=== PATIENT | female | born 1935 | race Caucasian/White ===

== ENCOUNTER 2016-10-14 06:15 | Day surgery (SDC) | payer MEDICARE ==
[~2016-10-14] VITALS: Ht 152.4 cm; Wt 77.6 kg
[~2016-10-14 06:15] MED LIST: AMLODIPINE BESYL5 MG PO; ASPIRIN EC325 MG PO; ATORVASTATIN CA80 MG PO; FISH OIL 1,0001 EAC3 PO; FUROSEMIDE20 MG PO; HYDROCHLOROTHIA25 MG PO; KEFLEX500 MG PO; LEVOTHYROXINE75 MCG PO; LOSARTAN POTAS100 MG PO; OSTERA TABLET1 EACH PO; POTASSIUM CHLO10 MEQ PO; RESTASIS1 DROP OD; STOOL SOFTENER100 MG PO; VITAMIN D50000 UNI1 PO
[2016-10-14] MEDS ORDERED: ACID CONTROLLER10 MG PO (06:33)
[2016-10-14] MEDS ORDERED: FEOSOL325 MG PO (06:33)
--- NOTE | 2016-10-14 08:11 | NUR ---
10/14/16 0811 Eunice Baptiste 0805 - PT ARRIVED TO PACU. BP NOTED TO BE LOW, FLUIDS RUNNING, HEAD OF BED LOWERED. PT RESPONDING APPROPRIATLY TO QUESTIONS. PT ORIENTED TO PERSON, PLACE, TIME, AND SITUATION. PT MAINTAINING OWN AIRWAY AND DENIES PAIN AND NAUSEA
--- NOTE | 2016-10-19 10:32 | OR ---
[facility] [address], [place] [address] Signed DATE OF SERVICE: 10/14/2016 PREOPERATIVE DIAGNOSES: Dark stool with anemia. Unremarkable colonoscopy 1 year ago. POSTOPERATIVE DIAGNOSES: Diffuse gastritis without active hemorrhage, small hiatal hernia without esophagitis. PROCEDURE PERFORMED: Esophagogastroduodenoscopy with biopsy. SURGEON: Fernanda Richard MD. ANESTHESIA: Intravenous sedation, fentanyl 100 mcg, Versed 3 mg. INDICATION: This 81-year-old white woman, is a patient of Dr. Au and underwent colonoscopy in 2016, which was essentially normal. Certainly, no evidence of neoplasm or significant polyp disease. She has developed dark stool and low-grade anemia. She has had no harriet hematemesis. She denies any upper abdominal pain. She describes being "allergic" to Prilosec. She is admitted at this time to undergo upper endoscopy to better characterize the source of her complaint. Understand the risks of bleeding, infection, and perforation. FINDINGS: Esophagus was normal as was the duodenum. The stomach had diffuse gastritis. A punctate type significant inflammatory change of the upper stomach. Biopsies were obtained. CLOtest was negative 15 minutes post procedure. CLOtest will be monitored for at least 24 hours. DESCRIPTION OF PROCEDURE: The patient brought to the endoscopy suite and placed in later al decubitus position after undergoing topical Hurricaine spray hypopharyngeal anesthesia. A bite block was placed after satisfactory intravenous sedation with full cardiopulmonary monitoring. An Olympus video upper endoscope was placed in the hypopharynx. Vocal cords were visualized as normal. Scope was advanced to the esophagus without problem. Throughout its length, it was normal. Scope was advanced to the stomach, which was insufflated with air. There was a fair amount of bile within the stomach. Rug a l folds appeared normal in configuration. Scope was advanced to the antrum, which showed some mild erythematous streaking of the pre-pyloric antrum. The pylorus itself was not deformed and there is no Electronically Signed By: FERNANDA RICHARD MD 10/19/16 1032 PATIENT NAME: KELSIE SULLIVAN OPERATIVE REPORT DATE OF : 39 PHYSICIAN: FERNANDA RICHARD MD REPORT #: [id number] REPORT IS CONFIDENTIAL AND NOT TO BE RELEASED WITHOUT AUTHORIZATION [facility] [address], [place] [address] Signed pre-pyloric ulcer proper. The scope was passed into the duodenal, in the bulbar second and third portions all appeared reasonably normal. Biopsies were taken of the second and third portions. This was to assess for celiac disease. The scope was then withdrawn. Biopsies taken of the antrum for both clinical and pathologic testing, and a retroflex view was undertaken showing punctate diffuse gastritis throughout the stomach. An atrophic appearing mucosa was noted. Biopsies were taken more proximally as well. There was a hiatal hernia noted at the GE junction. The scope was straightened and withdrawn to the distal esophagus, where biopsies were obtained. The mucosa appeared normal. Careful withdrawal of scope showed no other abnormalities. Scope was removed, and the patient was taken to recovery room in good condition. CONCLUDING DIAGNOSIS: Diffuse gastritis likely accounting for symptoms. PLAN We will prescribe Carafate 1 g slurry q.i.d. on empty stomach. Avoidance of ibuprofen as much as possible in the near-term future would be appropriate. We will recheck CBC in approximately 4 weeks and she can return to clinic in 4-6 weeks in followup. MD DAILY Evans/Kevin /[id number] Electronically Signed By: FERNANDA RICHARD MD 10/19/16 1032 PATIENT NAME: KELSIE SULLIVAN OPERATIVE REPORT DATE OF : 39 PHYSICIAN: FERNANDA RICHARD MD REPORT #: [id number] REPORT IS CONFIDENTIAL AND NOT TO BE RELEASED WITHOUT AUTHORIZATION
== END 2016-10-14 09:00 | disposition home or self-care (01) ==
LOC: OPS 06:15 → DS 06:15 → OPS 09:00 → DS 14:00
PROVIDERS: Surgery
PROC: 0DB78ZX Excision of Stomach, Pylorus, Via Natural or Artificial Opening Endoscopic, Diagnostic (ICD-10-PCS; 2016-10-14)
PROC: 0DB68ZX Excision of Stomach, Via Natural or Artificial Opening Endoscopic, Diagnostic (ICD-10-PCS; 2016-10-14)
PROC: 0DB38ZX Excision of Lower Esophagus, Via Natural or Artificial Opening Endoscopic, Diagnostic (ICD-10-PCS; principal; 2016-10-14 14:00)
DX: K29.50 Unspecified chronic gastritis without bleeding (principal); K44.9 Diaphragmatic hernia without obstruction or gangrene; K21.9 Gastro-esophageal reflux disease without esophagitis; I10 Essential (primary) hypertension; E78.5 Hyperlipidemia, unspecified; E03.9 Hypothyroidism, unspecified; E66.9 Obesity, unspecified; M81.0 Age-related osteoporosis without current pathological fracture; D64.9 Anemia, unspecified; Z87.440 Personal history of urinary (tract) infections; Z98.890 Other specified postprocedural states
CPT/HCPCS: 88305; 88342; 99152; 99153; J2250; J3010; J7120

== ENCOUNTER 2021-10-07 23:23 | Inpatient (IN) | payer MEDICARE ==
[~2021-10-07] VITALS: Ht 152.4 cm; Wt 82.2 kg
[~2021-10-07 23:23] MED LIST changes: +ACID CONTROLLER10 MG PO; +FEOSOL325 MG PO
[2021-10-07] MEDS ORDERED: CIPRO500 MG PO (23:37)
--- NOTE | 2021-10-08 02:28 | NUR ---
PATIENT CONVERTED FROM AFIB TO NSR. RATE IN THE 70'S. VS STABLE.
--- NOTE | 2021-10-08 03:11 | NUR ---
REPORT RECEIVED FROM KULWANT WARE. PATIENT ARRIVED VIA STRETCHER WITH FAMILY AT BEDSIDE. PATIENT HAD TO USE THE RESTROOM AND USED THE BEDSIDE COMMODE. SHE REOPRTS URGE INCONTINANCE AND BURNING DUE TO RECENT UTI. ORIENTED TO CALL LIGHT AND ROOM. FAMILY AT BEDSIDE. CALL LIGHT IN REACH.
[2021-10-08] MEDS ORDERED: TROSPIUM CHLORI60 MG PO (04:33)
--- NOTE | 2021-10-08 05:32 | NUR ---
IN ROOM TO GIVE AM MEDS. PATIENT REPORTED NEEDING TO USE THE RESTROOM. 1 PERSON ASSIST TO BEDSIDE COMMODE. URGE INCONTINANCE WITH VOID. CLEAN ATTENDS PLACE ON PT. HR BUMPED TO THE 90'S WITH AMBULATION.
--- NOTE | 2021-10-08 07:48 | NUR ---
1PA TO BSC FOR VOID, PATIENT WAS ALSO INCONTINENT OF URINE DURING TRANSFER TO BSC. VITALS AND I&OS CHARTED, FACE AND HANDS WASHED. PATIENT UP IN DR SHAGGY GARCES AT CHAIRSIDE. CALL LIGHT IN EASY REACH
--- NOTE | 2021-10-08 07:53 | NUR ---
DR. COON IN ROOM TO SEE PATIENT AT THIS TIME. PT UP SITTING IN CHAIR, VISITING WITH MD. PLAN OF CARE BEING DISCUSSED. PT REMAINS IN A SINUS RHYTHM SINCE AROUND 0230 THIS AM. LAST BP 125/69. IVF CONTINUE AT 125 ML/HR. PT APPEARS COMFORTABLE.
--- NOTE | 2021-10-08 09:00 | NUR ---
Spoke with pt and she states she lives with her spouse in a 1 story house with few steps. She does not use DME, assists her as he is 87. States she is active, cleans, cooks, does laundry, and yard work. States she became very weak with AFIB and could not work. She also has two daughters who assist them when needed. Pt plans on dc to home when cleared medically. Pt convert to sr from afib.
[2021-10-08] MEDS ORDERED: CIPROFLOXACIN250 MG PO (09:19)
[2021-10-08] MEDS ORDERED: CEPHALEXIN500 MG PO (09:20)
[2021-10-08] MEDS ORDERED: ATORVASTATIN CA20 MG PO (09:20)
[2021-10-08] MEDS ORDERED: MYRBETRIQ50 MG PO (09:20)
[2021-10-08] MEDS ORDERED: LOSARTAN-HCTZ1 EAC2 PO (09:21)
[2021-10-08] MEDS ORDERED: FAMOTIDINE40 MG PO (09:21)
--- NOTE | 2021-10-08 09:59 | NUR ---
PATIENT BACK TO BED FOR ECHO. PATIENT CALLS APPROPRIATELY WHEN SHE NEEDS TO VOID HOWEVER THE MINUTE SHE STANDS, SHE HAS LITTLE CONTROL OVER HER BLADDER AND VOIDS IN HER ATTENDS.
--- NOTE | 2021-10-08 10:15 | NUR ---
ECHO IN ROOM AT THIS TIME AND PERFORMING ECHO. PT HELPED BACK TO BED WITH ASSISTANCE OF SERVER ASSISTANT. PT UP TO BSC TO VOID AFTER INCONTINENCE IN ATTENDS. PT REMAINS IN SINUS RHYTHM.
--- NOTE | 2021-10-08 11:08 | NUR ---
1PA TO BSC FOR VOID AND BACK TO CHAIR. AND DAUGHTER IN ROOM. CALL LIGHT IN EASY REACH
--- NOTE | 2021-10-08 12:31 | NUR ---
PATIENT BACK IN BED AT THIS TIME AND RESTING. PT GIVEN SUPPOSITORY TO HELP HER HAVE A BM, WHICH SHE STATES SHE HASN'T HAD IN 3 DAYS. PT FRUSTRATED WITH THIS. PT'S FAMILY HAS LEFT FOR THE DAY BUT WERE HERE VISITING FOR SEVERAL HOURS THIS AM. PT REMAINS IN SINUS RHYTHM. HR IN THE60s. PT DENIES ANY PAIN AT THIS TIME. ASSESSMENT COMPLETE AND UNCHANGED FROM THIS AM. PT REMAINS SALINE LOCKED. CONTINUE CARLOS ONITOR.
--- NOTE | 2021-10-08 12:37 | NUR ---
VITALS AND I&OS CHARTED PATIENT UP TO BSC FOR VOID AND BACK TO BED. RN IN ROOM AT THIS TIME. CALL LIGHT IN EASY REACH.
--- NOTE | 2021-10-08 13:41 | NUR ---
PATIENT TRANSFERRED TOMED/SURG, ROOM 109 IN BED. REPORT GIVEN TO CHAZ ABDULLAHI WHO IS RESUMING CARE OF PATIENT. PT'S KEKE MORALES [phone] CALLED TO UPDATE ON PT'S MOVE. ALL BELONGINGS TRANSFERRED WITH PATIENT.
--- NOTE | 2021-10-08 13:45 | NUR ---
Pt arrives to medical floor room 109. Pt A+O, VSS. Assessment WNL. Tele in place, SR. IV SL WNL. Pt oriented to room/unit, states no needs. Call light in reach.
--- NOTE | 2021-10-08 14:10 | NUR ---
DIGITAL COMMUNICATIONS MANAGER Tia in room to assist pt to use restroom.
--- NOTE | 2021-10-08 14:55 | NUR ---
Pt assisted to use restroom, some incontinence of urine noted, clean dry attends provided. Scheduled lovenox administered and pt educated, verbalizes understanding about POC and has no questions.
--- NOTE | 2021-10-08 16:30 | NUR ---
Pt continues to have gas and no BM, urine incontinence noted, assisted with ambulation and dry attends provided.
--- NOTE | 2021-10-08 18:16 | NUR ---
Scheduled medications administered and pt finishing her dinner of a sandwich, she states low appetite. Fresh water provided, family in room, questions answered re: POC. They verbalize understanding. No needs at this time.
--- NOTE | 2021-10-08 19:26 | NUR ---
BEDSIDE REPORT FROMJUNIOR RN , PT RESTING IN BED EYES CLOSED RR REGULAR AT 16 BPM. NO DISTRESS NOTED AT THIS TIME.
--- NOTE | 2021-10-08 21:30 | NUR ---
PT SITTING UP AT BEDSIDE, SHE HAD REPORTED THAT SHE HAS BEEN TO THE BATHROOM AND BACK BY HERSELF, SHE ALSO SAID SHE THOUGHT IT WAS 0900 AM RATHER THAN NIGHT TIME. PT REORIENTED, SHE HAD SMALL BM, AND MISSED VOID X2. SHE IS NOW IN BED WITH BED ALARM ON ASSESSMENT COMPLETE.
--- NOTE | 2021-10-08 23:14 | NUR ---
PT USED CALL LIGHT FOR ASSISTANCE TO GET OUT OF BED TO BATHROOM AT THIS TIME.
--- NOTE | 2021-10-08 23:24 | NUR ---
patient CALLED TO USE THE BATHROOM. SBA. PATIENT REFUSED TO USE WALKER. PATIENT'S PULL UP AND ABEL PAD CHANGED DUE TO INCONTINENT URINE. PATIENT IS BACK IN BED. PATIENT DENIES FURTHER NEEDS AT THIS TIME. BED SIDE RAILS UP AND BED ALARM ON FOR SAFETY. CALL LIGHT WITHIN REACH.
--- NOTE | 2021-10-09 01:00 | NUR ---
CALL LIGHT ANSWERED. PT UP TO BR TO VOID 100 ML CLEAR YELLOW URINE. PT INCONTINENT ON THE WAY TO THE BATHROOM WELL. CLEAN ATTENDS PROVIDED. BACK TO BED, RICO WELL. DENIES NEEDS. CALL LIGHT IN REACH. BED ALARM FOR SAFETY.
--- NOTE | 2021-10-09 03:53 | NUR ---
BED ALARM SOUNDING. PATIENT GOT UP TO USE THE BATHROOM. SBA. PATIENT IS URINATING WHILE ON THE WAY TO THE BATHROOM. PATIENT'S PULL UPS WITH ABEL PAD CHANGED. PATIENT IS BACK IN BED. BED ALARM ON. PATIENT'S IV ON HER RIGHT ARM PULLED OUT. PRIMARY RN NOTIFIED.
--- NOTE | 2021-10-09 04:36 | NUR ---
PT HAS BEEN SLEEPING INTERMITTENLY, SHE CALLS OR SETS OFF BED ALARM TO GET UP TO USE THE BATHROOM ON AVERAGE EVERY TWO HOURS. SHE HAS NOT REPORTED ANY PAIN OR NAUSEA OVER SHIFT. SHE IS ONE PERSON STANDBY ASSIST UP TO AMBULATE. WILL COLLECT NEW URINE SAMPLE PER ORDERS BY END OF SHIFT. NO NEW CONCERNS THIS SHIFT.
--- NOTE | 2021-10-09 05:05 | NUR ---
PT USED CALL LIGHT FOR ASSISTANCE UP TO BATHROOM. ONE PERSON STANDBY ASSIST, PT STEADY ON HER FEET THIS AM, V/S, I/O AND AM ASSESSMENT COMPLETE. BED ALARM ON FOR PT SAFETY, CALL LIGHT IN REACH
--- NOTE | 2021-10-09 06:07 | NUR ---
PATIENT WENT TO THE BATHROOM SBA. PATIENT IS UP IN THE CHAIR. ALARM SET. URINE SAMPLE COLLECTED AND SENT TO LAB.
--- NOTE | 2021-10-09 07:26 | EKG ---
[facility] [address] [facility] [place], [place] [address] Signed Atrial fibrillation with rapid ventricular response ST \T\ T wave abnormality, consider inferior ischemia Abnormal ECG No previous ECGs available Confirmed by ZEENAT COON MD ([id number]) on 10/09/2021 7:26:39 AM Electronically Signed By: ZEENAT COON MD 10/09/21 0726 PATIENT NAME: KELSIE SULLIVAN Electrocardiogram DATE OF : 39 PHYSICIAN: ZEENAT COON MD REPORT #: [id number] REPORT IS CONFIDENTIAL AND NOT TO BE RELEASED WITHOUT AUTHORIZATION
--- NOTE | 2021-10-09 07:38 | NUR ---
Report received from Judy WARE. Pt resting in bed with eyes closed, even and unlabored resporations, no needs identified, will continue plan of care.
--- NOTE | 2021-10-09 09:10 | NUR ---
Spoke with Yvonne. She cont. to plan on dc today. Denies any needs. Daughter and spouse will pick her up and transport her home.
--- NOTE | 2021-10-09 09:40 | NUR ---
Scheduled medications administered and assessment complete. Pt sitting up to chair after breakfast and states her appetite has been improving. Family arrives at bedside. Pt states had small BM during night and her "stomach is feeling better". VSS, HRR, BP and rhythm WNL. Family questions regarding home medications, Rebecca from pharmacy in room to assist.
[2021-10-09] MEDS ORDERED: POTASSIUM CHLO10 MEQ PO (10:16)
[2021-10-09] MEDS ORDERED: DILTIAZEM 24HR120 MG PO (10:16)
== END 2021-10-09 11:05 | disposition home or self-care (01) | DRG 641 ==
LOC: ED 23:23 → CCU 10-08 01:14 → MS 10-08 13:40
PROVIDERS: ADMIT Internal Medicine; ATTEND Internal Medicine
DX: E87.6 Hypokalemia (principal); N39.0 Urinary tract infection, site not specified; I48.91 Unspecified atrial fibrillation; E87.1 Hypo-osmolality and hyponatremia; K59.00 Constipation, unspecified; I35.0 Nonrheumatic aortic (valve) stenosis; E03.9 Hypothyroidism, unspecified; K21.9 Gastro-esophageal reflux disease without esophagitis; I10 Essential (primary) hypertension; E78.00 Pure hypercholesterolemia, unspecified; M81.0 Age-related osteoporosis without current pathological fracture; Z90.710 Acquired absence of both cervix and uterus; Z98.890 Other specified postprocedural states; Z91.013 Allergy to seafood; Z88.8 Allergy status to other drugs, medicaments and biological substances; Z79.899 Other long term (current) drug therapy; Z79.02 Long term (current) use of antithrombotics/antiplatelets; Z79.82 Long term (current) use of aspirin; Z79.2 Long term (current) use of antibiotics; Z79.01 Long term (current) use of anticoagulants; Z20.822 Contact with and (suspected) exposure to COVID-19
CPT/HCPCS: 36415; 71045; 74018; 80048; 80053; 81001; 83735; 83880; 84484; 85025; 87502; 93005; 93010; 93306; 96361; 96374; 96375; 99285-25; A9270; C9803; J1650; J3475; J3480; J7030; U0003

== ENCOUNTER 2022-06-13 10:03 | Emergency (ER) | payer MEDICARE ==
[~2022-06-13] VITALS: Ht 152.4 cm; Wt 77.1 kg
[~2022-06-13 10:03] MED LIST changes: +ALPHA LIPOIC A200 MG PO; +ATORVASTATIN CA20 MG PO; +CEPHALEXIN500 MG PO; +CIPRO500 MG PO; +CIPROFLOXACIN250 MG PO; +CITALOPRAM HBR10 MG PO; +DILT-XR120 MG PO; +DILTIAZEM 24HR120 MG PO; +FAMOTIDINE40 MG PO; +JANTOVEN5 MG PO; +LOSARTAN-HCTZ1 EAC2 PO; +MYRBETRIQ50 MG PO; +TROSPIUM CHLORI60 MG PO; +VITAMIN B-121000 MCG PO; +VITAMIN D325 MC4 PO; -VITAMIN D50000 UNI1 PO
[2022-06-13] MEDS ORDERED: KLOR-CON M1010 MEQ PO (10:17)
[2022-06-13] MEDS ORDERED: ONDANSETRON HCL4 MG PO (13:10)
== END 2022-06-13 13:33 | disposition home or self-care (01) ==
LOC: ED 10:03
DX: R19.7 Diarrhea, unspecified (principal); I10 Essential (primary) hypertension; E78.5 Hyperlipidemia, unspecified; E03.9 Hypothyroidism, unspecified; Z91.013 Allergy to seafood; Z88.8 Allergy status to other drugs, medicaments and biological substances; Z79.899 Other long term (current) drug therapy; Z79.01 Long term (current) use of anticoagulants
CPT/HCPCS: 36415; 80053; 81001; 83690; 85025; 85610; 87088; 96374; 99284-25; J2405; J7030

== ENCOUNTER 2024-06-13 08:34 | Inpatient (IN) | payer MEDICARE ==
[~2024-06-13] VITALS: Ht 157.5 cm; Wt 80.1 kg
[~2024-06-13 08:34] MED LIST changes: +DULOXETINE HCL30 MG PO; +KLOR-CON M1010 MEQ PO; +ONDANSETRON HCL4 MG PO; -VITAMIN B-121000 MCG PO
[2024-06-13 09:51] LABS: BASOPHILS 0.4 % (0-2); EOSINOPHILS 1.1 % (0-6); HEMATOCRIT 24.9 % (35.0-50.0); HEMOGLOBIN 8.4 g/dL (12.0-18.0); LYMPHOCYTES 20.8 % (24-44); MCH 30.8 (27-36); MCHC 33.9 g/dl (30-36); MONOCYTES 9.1 % (0-12); NEUTROPHILS 68.6 % (39-80); PLATELET COUNT 192 K/uL (140-440); RBC 2.74 M/ul (4.3-5.7); RDW 14.3 (10.5-15.0)
[2024-06-13 10:03] LABS: PARTIAL THROMBOPLASTIN TIME 22.9 Sec (22.9-41.3)
[2024-06-13 10:04] LABS: INR 1.73 (0.80-1.30); PROTIME 20.3 Sec (11.2-14.2)
[2024-06-13 10:07] LABS: ALBUMIN 3.2 g/dL (3.4-5.0); ALBUMIN/GLOBULIN RATIO 1.23 (1.1-2.4); BILIRUBIN, TOTAL 0.4 mg/dL (0.2-1.0); BUN/CREATININE RATIO 14.94 (6.0-28.6); CREATININE, SERUM 0.87 mg/dL (0.55-1.02); PROTEIN, TOTAL 5.8 g/dL (6.4-8.2)
[2024-06-13 10:24] LABS: ABO A; ANTIBODY SCREEN NEGATIVE; RH POSITIVE
[2024-06-13] MEDS ORDERED: SODIUM CHLORIDE 0.9% 500 ML IV PRN (11:15)
[2024-06-13 14:17] LABS: IS CROSSMATCH COMPATIBLE
[2024-06-13 14:18] LABS: ABO A; RH POSITIVE
[2024-06-13] MEDS ORDERED: FAMOTIDINE 20 MG TAB PO SCH (14:29)
[2024-06-13] MEDS ORDERED: ACETAMINOPHEN 325 MG TAB PO PRN (14:30)
[2024-06-13] MEDS ORDERED: LACTATED RINGER'S 1,000 ML IV SCH (14:30)
[2024-06-13] MEDS ORDERED: ondansetron HCL 4 MG/2 ML VIAL IV PRN (14:30)
[2024-06-13] MEDS ORDERED: POLYETHYLENE GLYCOL 3350 BOTTLE PO ONE (14:45)
[2024-06-13] MEDS ORDERED: LIDOCAINE HCL 4% 1 EACH PATCH TD SCH (14:45)
[2024-06-13] MEDS ORDERED: LIDOCAINE1 EACH TOP (14:52)
--- NOTE | 2024-06-13 15:45 | NUR ---
PT ARRIVED TO MS ROOM 111 VIA STRETCHER. MOVED TO BED VIA SLIDER SHEET. SKIN INTACT, BRUISES SCATTERED, MULTIPLE IV ATTEMPTS IN ER. HEART MUMUR HEARD. LUNGS CLEAR. REPORTS WEAKNESS BILAT LEGS. PT WAS CHANGED AND CLEANED. CLOTS OF BLOOD PRESENT, UNDERWEAR SATURATED IN BLOOD. PT GAVE OKAY TO THROW THEM IN GARBAGE. CLEAN BRIEF APPLIED. ORIENTED TO CALL LIGHT, IN REACH. BLOOD TRANSFUSION INFUSING AT 125 ML/HR. PT TOLERATING WELL. FAMILY AT BEDSIDE.
[2024-06-13 15:48] VITALS: BP 117/56
[2024-06-13 16:33] VITALS: BP 117/56
[2024-06-13] MEDS ORDERED: ATORVASTATIN 20 MG TAB PO SCH (17:00)
[2024-06-13] MEDS ORDERED: VITAMIN B-121000 MCG PO (17:07)
[2024-06-13] MEDS ORDERED: VITAMIN D325 MC4 PO (17:07)
--- NOTE | 2024-06-13 17:09 | NUR ---
medications reconciled with pharmacy records, Dr Witt notes and patient interview. Patient stopped warfarin on the direction of Dr Witt 06/11/24 when she presented with potential GI bleed
[2024-06-13] MEDS ORDERED: ACETAMINOPHEN500 MG PO (17:16)
[2024-06-13 17:51] VITALS: BP 117/49
--- NOTE | 2024-06-13 18:40 | NUR ---
blood transfusion complete. vss.
[2024-06-13 18:47] VITALS: BP 117/49
--- NOTE | 2024-06-13 19:25 | NUR ---
CALL LIGHT ANSWERED. 1 PA TO BEDSIDE COMMODE. PATIENT VOIDED MIXED WITH BM AND COLOR DARK RED. PRIMARY RN DAY SHIFT LOOKED AT IT. ABEL CARE ASSISTED. PATIENT IS BACK IN BED. NO OTHER NEEDS AT THIS TIME.
--- NOTE | 2024-06-13 19:40 | NUR ---
GOT REPORT FROM DAY SHIFT NURSE.
[2024-06-13 20:45] VITALS: BP 112/47
[2024-06-13] MEDS ORDERED: PHYTONADIONE 2.5 MG/2.5 ML SYR PO ONE (20:45)
[2024-06-13] MEDS ORDERED: dilTIAZem HCL 120 MG CAPCR PO SCH (21:00)
[2024-06-13] MEDS ORDERED: LIDOCAINE PATCH REMOVAL 1 EA TD SCH (21:00)
[2024-06-13] MEDS ORDERED: MELATONIN 3 MG TAB PO PRN (21:00)
[2024-06-13 21:10] VITALS: BP 112/47
--- NOTE | 2024-06-13 21:14 | NUR ---
PATIENT GIVEN EVENING MEDICATIONS. SHE IS DOING HER BOWEL PREP CURRENTLY. WILL BE NPO AT BEDTIME. PATIENT UP TO THE BEDSIDE COMMOND FOR BM. PATIENT CURRENTLY WATCHING TV AND IN GOOD SPIRITS. SHE WAS GIVEN A WARM BLANKET AND MELATONIN TO GET SOME REST. PATIENT DENIES AN OTHER CARES AT THIS TIME. CALL LIGHT WITHIN REACH, BED IN LOW POSITION. IV FLUIDS RUNNING.
--- NOTE | 2024-06-13 21:30 | EKG ---
[facility] [address] [facility] [place] [address] Signed Normal sinus rhythm with sinus arrhythmia Nonspecific T wave abnormality Abnormal ECG When compared with ECG of 07-OCT-2021 23:47, Sinus rhythm has replaced Atrial fibrillation Vent. rate has decreased BY 58 BPM Non-specific change in ST segment in Inferior leads ST no longer depressed in Anterior leads Nonspecific T wave abnormality has replaced inverted T waves in Inferior leads Nonspecific T wave abnormality has replaced inverted T waves in Lateral leads Confirmed by Madisyn Ralph DO ([id number]) on 06/13/2024 9:30:11 PM Electronically Signed By: MADISYN RALPH DO [id number]/13/[id number] PATIENT NAME: KELSIE SULLIVAN Electrocardiogram DATE OF : 39 PHYSICIAN: MADISYN RALPH DO REPORT #: [id number] REPORT IS CONFIDENTIAL AND NOT TO BE RELEASED WITHOUT AUTHORIZATION
--- NOTE | 2024-06-13 22:46 | NUR ---
PATIENT UP WITH UNDERWATER HUNTER TRAPPER AT BEDSIDE COMMODE. PATIENT WILL BE NPO AT MIDNIGHT.
--- NOTE | 2024-06-13 23:50 | NUR ---
PATIENT SLEEPING ON HER LEFT SIDE. REGULAR RESPIRATIONS NOTED.
[2024-06-14] VITALS (10 sets, daily range): BP systolic 107–136; BP diastolic 45–56
--- NOTE | 2024-06-14 00:30 | NUR ---
RECEIVED RPEORT FROM SALAZAR WARE. PATIENT IS RESTING IN BED WITH EYES CLOSED, RR 15. NAD NOTED. CALL LIGHT IN REACH.
--- NOTE | 2024-06-14 02:06 | NUR ---
PATIENTS VITALS TAKEN AND RECORDED. PATIENT UP TO BSC A SBA. PATIENT ABLE TO VOID AND HAVE BM. PATIENT IS BACK IN BED RESTING. PATIENTS INTAKE AND OUTPUT RECORDED. PATIENT DENIES ANY PAIN OR NAUSEA. PATIENT DENIES ANY FURTHER NEEDS. CALL LIGHT IN REACH. IV INFUSING PER ORDER.
--- NOTE | 2024-06-14 04:24 | NUR ---
PATIENT IS UP TO BSC A 1PA. PATIENT ABLE TO VOID AND HAVE BM. PATIENT IS BACK IN BED RESTING. PATIENT DENIES ANY PAIN OR NAUSEA. PATIENT DENIES ANY FURTHER NEEDS. SCDS IN PLACE. IV INFUSING PER ORDER. CALL LIGHT IN REACH. CONSENT SIGNED AND PLACED ON CHART.
[2024-06-14 05:20] LABS: BASOPHILS 0.8 % (0-2); EOSINOPHILS 1.6 % (0-6); HEMATOCRIT 21.1 % (35.0-50.0); HEMOGLOBIN 7.2 g/dL (12.0-18.0); LYMPHOCYTES 29.1 % (24-44); MCH 30.9 (27-36); MCHC 34.3 g/dl (30-36); MCV 90.2 fl (81-99); NEUTROPHILS 59.5 % (39-80); PLATELET COUNT 149 K/uL (140-440); RBC 2.34 M/ul (4.3-5.7); RDW 14.7 (10.5-15.0)
[2024-06-14 05:29] LABS: ANION GAP 11.9 (7-21); BUN/CREATININE RATIO 14.7 (6.0-28.6); CALCIUM 8.5 mg/dL (8.5-10.1); CREATININE, SERUM 0.68 mg/dL (0.55-1.02); MAGNESIUM 1.9 mg/dL (1.8-2.4); POTASSIUM 3.9 mmol/L (3.5-5.1)
--- NOTE | 2024-06-14 06:24 | NUR ---
PATIENTS VITALS TAKEN AND RECORDED. PATIENT UP TO BSC A 1PA. PATIENT ABLE TO VOID AND HAVE BM. PATIENT IS BADK IN BED RESTING. PATIENT DENIES ANY PAIN OR NAUSEA. PATIENTS IV INFUSING PER ORDER. PATIENTS AM MEDS GIVEN WITH SIPS OF WATER. PATIENT DENIES ANY FURTHER NEEDS. CALL LIGHT IN REACH.
[2024-06-14] MEDS ORDERED: LEVOTHYROXINE SODIUM 75 MCG TAB PO SCH (07:00)
--- NOTE | 2024-06-14 08:36 | NUR ---
PATIENT IN BED AT THIS TIME. CHARGING OPERATOR ASSISTED PATIENT TO BEDSIDE COMMODE AND THEN BACK TO BED, HOURLY ROUNDS DONE AT THIS TIME. CALL LIGHT WITHIN REACH, NO FURTHER NEEDS AT THIS TIME.
--- NOTE | 2024-06-14 08:41 | NUR ---
MORNING ASSESSMENT COMPLETE. PT AWAKE IN BED, DENIES ANY DISCOMFORT. DISCUSSES WITH PT THAT DOCTOR ORDERED ANOTHER UNIT OF BLOOD. PT COMPLIANT. IV SITE CHECKED AND PATENT. BLOOD TUBING READY, PRIMED WITH NS. PT DENIES NEEDS AT THIS TIME. CALL LIGHT IN REACH.
--- NOTE | 2024-06-14 09:10 | NUR ---
PATIENT IN BED AT THIS TIME. COURT OF [employer] JUDGE CHARTED VITALS AND I&O'S. CALL LIGHT WITHIN REACH, NO FURTHER NEEDS AT THIS TIME.
[2024-06-14 09:17] LABS: INR 1.35 (0.80-1.30); PROTIME 16.7 Sec (11.2-14.2)
--- NOTE | 2024-06-14 09:42 | NUR ---
PT AWAKE IN BED, FAMILY AT BEDSIDE, BOOSTED IN BED, CALL LIGHT IN REACH
--- NOTE | 2024-06-14 09:45 | NUR ---
Spoke with pt, spouse, and daughter. Pt is waiting to has and Egd and scope today. Pt lives with spouse and they share development and planning engineer, cooking. They have a housekeeping q 2-3 weeks. They deny needs. 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 Pt denies financial concerns. Discussed [employer] and dial a ride if needed. Pt plans on dc to home with family. Family in agreement when she is medically cleared.
[2024-06-14 09:48] LABS: ABO A; ANTIBODY SCREEN NEGATIVE; IS CROSSMATCH COMPATIBLE; RH POSITIVE
--- NOTE | 2024-06-14 10:19 | NUR ---
BLOOD TRANSFUSION STARTED AT 1014 PT EDUCATED ON S/S TO LOOK FOR DURING TRANSFUSION. FAMILY AT BEDSIDE. PREVS STABLE
--- NOTE | 2024-06-14 10:29 | NUR ---
15 MIN FROM BLOOD TRANSFUSION. PT IS TOLERATING WELL. BP LOW 102/46 SUSPECTED. DENIES S/S AT THIS TIME. INCREASES BLOOD RATE TO 125ML/HR. CALL LIGHT IN REACH. FAMILY REMAINS AT BEDSIDE.
--- NOTE | 2024-06-14 11:40 | NUR ---
PT AWAKE IN BED, FAMILY AT BEDSIDE. DENIES NEEDS. CALL LIGHT IN REACH.
[2024-06-14] MEDS ORDERED: PHARMACY RENAL DOSE ADJUSTMENT 1 DOSE MISC PO SCH (12:00)
--- NOTE | 2024-06-14 12:58 | NUR ---
REPORT GIVEN TO CHAZ MIRANDA. PT TRANSFERRED TO [facility] VIA WALKER SBA.
--- NOTE | 2024-06-14 13:08 | NUR ---
UR CLINICAL REVIEW: 2 MN ION, MEETS INPT FOR LOWER GI BLEED. BOWEL PREP, MONITOR LABS, IV FLUIDS, COLONOSCOPY TO BE DONE MEDICARE INPT 06/13/2024 @ 1430 ORDER MATCHES REG NO AUTH REQUIRED PER MEDICARE RULE PLAN TO DC TO HOME WHEN MEDICALLY STABLE.
[2024-06-14] MEDS ORDERED: propofoL 200 MG/20 ML VIAL ONE (13:42)
[2024-06-14] MEDS ORDERED: LIDOCAINE HCL 2% 5 ML SDV ONE (13:42)
[2024-06-14] MEDS ORDERED: fentaNYL citrate 100 MCG/2 ML VIAL ONE (13:42)
[2024-06-14] MEDS ORDERED: PHENYLEPHRINE HCL 10 MG/ML VIAL ONE (13:51)
[2024-06-14] MEDS ORDERED: ePHEDrine sulfate 50 MG/ML AMP ONE (14:06)
[2024-06-14] MEDS ORDERED: KETAMINE in NS 50 MG/5 ML SYR ONE (14:09)
--- NOTE | 2024-06-14 14:21 | NUR ---
PT NOT AVAILABLE FOR VISIT. PROVIDED PRAYER.
--- NOTE | 2024-06-14 14:48 | NUR ---
06/14/24 1448 Cherri Zhong 1432-PT ARRIVES TO PACU VIA STRETCHER, RESTING ON LT SIDE. PT AWAKENS TO VOICE, DENIES PAIN OR NAUSEA, ENCOURAGED TO PASS GAS, PT FALLS BACK TO SLEEP EASILY, VSS ON 6L VIA MASK, RR EVEN AND UNLABORE.
--- NOTE | 2024-06-14 15:00 | NUR ---
PT ARRIVED TO MED SURG FROM PACU. PT IS ALERT, LAYING ON LEFT SIDE. STATES SHE IS COMFORTABLE. JOSE VOSS HOOKING PT TO CPOX. CALL LIGHT IN REACH.
--- NOTE | 2024-06-14 15:52 | CONS ---
[facility] [address], [place] [address] Signed DATE OF CONSULTATION: 06/13/2024 REQUESTING PHYSICIAN: Dr. Bryant. PROBLEM: Blood per rectum. HISTORY: This 88-year-old white woman has had several days of blood per rectum. She is chronically anticoagulated with Coumadin for atrial fibrillation. She is known to me from the past having undergone colonoscopy in 2016 showing profound diverticulosis and upper endoscopy for dark stool and anemia in 2017 confirming diffuse gastritis without active hemorrhage and a small hiatal hernia without esophagitis. She was noted to have a presentation to the emergency room at approximately 9 o'clock today and evaluated by Dr. Willson, who confirmed to have had loose bowel movements a week ago with blood starting two days ago on 06/11/2024. She was seen by her primary care provider, Dr. Rsoas, who advised her family to hold off on her Coumadin until Friday. She was advised to go to the emergency room if things worsen. She has continued to have hematochezia and has felt weak and dizzy. She was admitted by Dr. Bryant, the hospitalist and transfusion of 1 unit of packed red cells undertaken. PAST MEDICAL HISTORY: Does include hypertension, gastroesophageal reflux, hypothyroidism, osteoporosis, atrial fibrillation and most notably significant aortic stenosis. CURRENT MEDICINES: Include famotidine, diltiazem, cephalexin, Coumadin 3 days a week, duloxetine, Synthroid, atorvastatin, potassium supplement, and DSS. SOCIAL HISTORY: She lives in [place] and is . She recently lost her sister age 89 to "old age." REVIEW OF SYSTEMS: She denies any shortness of breath or chest pain. She denies any dysphagia. She has a longstanding reflux for which medication is helpful to her. PHYSICAL EXAMINATION: GENERAL: An elderly white woman who is alert and oriented. No sign of dementia. VITAL SIGNS: Temperature is 98, pulse 76, blood pressure 117/49. Trachea is midline. CHEST: Clear. HEART: Irregularly irregular consistent with atrial fibrillation. She has a harsh Electronically Signed By: FERNANDA RICHARD MD 06/14/24 1552 PATIENT NAME: KELSIE SULLIVAN CONSULTATION DATE OF : 39 REPORT #: [id number] PHYSICIAN: FERNANDA RICHARD MD PCP: CONOR ROSAS DO REPORT IS CONFIDENTIAL AND NOT TO BE RELEASED WITHOUT AUTHORIZATION [facility] [address], [place] [address] Signed murmur on both left and right parasternal borders concordant to aortic stenosis. EXTREMITIES: Show no edema, however. ABDOMEN: Soft. Easily palpated and obese. LABORATORY STUDIES: Show a presentation hematocrit of 24.9, white count 5.9, platelets 192,000. Chem profile is normal overall. Albumin is 3.2. Coag studies show an elevated INR of 1.73. Pro-time 20.3, PTT normal at 22.9. A CT of the abdomen and pelvis was performed, which showed extensive colonic diverticulosis without diverticulitis, a moderate to large hiatal hernia and no acute findings otherwise. ASSESSMENT: The patient has apparent melena, which has been going on for a few days in the face of chronic anticoagulation with Coumadin for atrial fibrillation. I agree that endoscopic evaluation is appropriate. A source of bleeding may be identified which could guide therapy including operative (endoscopic) management. Upper endoscopy and colonoscopy can be undertaken. The risk of bleeding, infection, perforation, and so forth were reviewed with her. A special note given her aortic stenosis which is probably advanced maintenance of her volume is paramount importance. We would ask for a propofol infusion assistance in her evaluation for that purpose alone. The patient is on no antibiotics currently and to my knowledge has no implanted joints that would mandate antibiotic administration. Antibiotics on the basis of aortic stenosis alone are generally not indicated. We will plan to do this tomorrow. She is undergoing a MiraLAX bowel prep at this time and has had at least 1 unit of blood transfused. MD DAILY Evans/CODYL /[id number] cc: DO Conor Waddell DO Electronically Signed By: FERNANDA RICHARD MD 06/14/24 1552 PATIENT NAME: KELSIE SULLIVAN CONSULTATION DATE OF : 39 REPORT #: [id number] PHYSICIAN: FERNANDA RICHARD MD PCP: CONOR ROSAS DO REPORT IS CONFIDENTIAL AND NOT TO BE RELEASED WITHOUT AUTHORIZATION [facility] [address] [place] [id number] Signed Copies: CONOR ROSAS DO ~ Electronically Signed By: FERNANDA RICHARD MD 06/14/24 1552 PATIENT NAME: KELSIE SULLIVAN CONSULTATION DATE OF : 39 REPORT #: [id number] PHYSICIAN: FERNANDA RICHARD MD PCP: CONOR ROSAS DO REPORT IS CONFIDENTIAL AND NOT TO BE RELEASED WITHOUT AUTHORIZATION
--- NOTE | 2024-06-14 15:52 | OR ---
[facility] [address] [place], [place] [address] Signed DATE OF OPERATION: 06/14/2024 SURGEON: Fernanda Richard MD PREOPERATIVE DIAGNOSIS: Hematochezia, possible melena. POSTOPERATIVE DIAGNOSES: 1. Large hiatal hernia without signs of upper gastrointestinal bleeding. 2. Extensive diverticulosis of sigmoid and left colon and small polyp of left colon. PROCEDURES: 1. Esophagogastroduodenoscopy with biopsy. 2. Total colonoscopy to cecum with cold morcellation polypectomy x1. ANESTHESIA: Intravenous sedation propofol infusion; James Crump CRNA. INDICATION: This 88-year-old white woman was admitted by Dr. Bryant on June 13, 2024 with complaints of harriet hematochezia. She is a patient Dr. Rosas. Dr. Rosas had recognized this bleeding several days prior to current admission and recommended she discontinue her Coumadin which she takes for chronic atrial fibrillation. The patient has undergone upper endoscopy in the past showing significant hemorrhagic gastritis and a colonoscopy in the past showing diverticulosis. She has been transfused 3 units of blood. She has no overt hematemesis and no recent blood per rectum whether melena or hematochezia. She is admitted to undergo upper endoscopy and colonoscopy. Now off her anticoagulation and reversal of the anticoagulation with vitamin K. The risk of bleeding, infection, and perforation were reviewed with her, she understands and wished to proceed. FINDINGS: Upper endoscopy did show a rather large hiatal hernia. No sign of esophagitis or actual focus that would account for bleeding. There was mild chronic gastritis. Duodenum was normal. CLOtest biopsy was negative 30 minutes post procedure. On colonoscopy there were extensive diverticula of the sigmoid and left colon and one small polyp of the left colon. There was no sign of blood either old or new within any part of the colon. I suspect her recent hematochezia was related to diverticular bleeding. DESCRIPTION OF PROCEDURE: The patient was brought to the endoscopy suite and placed in lateral decubitus position, Electronically Signed By: FERNANDA RICHARD MD 06/14/24 1552 PATIENT NAME: KELSIE SULLIVAN OPERATIVE REPORT DATE OF : 39 REPORT #: [id number] PHYSICIAN: FERNANDA RICHARD MD PCP: RADHA ROSAS DO REPORT IS CONFIDENTIAL AND NOT TO BE RELEASED WITHOUT AUTHORIZATION [facility] [address] [place], [place] [address] Signed given intravenous sedation with propofol infusional technique. A bite block was placed. An Olympus video upper endoscope passed in the hypopharynx. The vocal cords were normal. Scope was passed into the esophagus and examining the esophagus, stomach and duodenum. The duodenum was normal. Biopsies were obtained to assess for celiac disease. The scope was withdrawn. A biopsy was then taken of the antrum for both NORY and pathologic testing. There was mild chronic gastritis but no ulceration or sign of recent blood or bleeding. Retroflexed view showed a relatively large hiatal hernia but no sign of collar ulcer. Scope was withdrawn and biopsies then taken of the normal-appearing esophagus. There were no varices, no stricture, no Conde epithelium or other problem. Further withdrawal showed no other findings of the esophagus. Plans were then made for colonoscopy. Digital rectal examination was normal. Olympus video colonoscope was passed in the rectum and manipulated throughout the colon noting six stents, diverticula of the sigmoid in the left colon. Scope was advanced beyond this ultimately to the cecum. The ileocecal valve was identified well. There was no sign of blood or bleeding in the area. Excess irrigation fluid was suctioned free. Scope was then withdrawn. Examination throughout showed no sign of abnormality other than extensive diverticular changes of the left colon and sigmoid. There was a small polyp of the left colon which was excised with cold morcellation polypectomy technique. Further withdrawal showed no sign of active bleeding, old clot, new clot or other issue. The rectum itself appeared normal. Retroflexed view was undertaken showing minimal hemorrhoidal changes. Scope was removed. The patient was taken to recovery room in good condition. CONCLUDING DIAGNOSIS: Bleeding most likely related to diverticulosis. No evidence of suspicious lesion on upper endoscopy and colonoscopy showing a very small polyp and only diverticula. PLAN: Reinitiation of diet can be undertaken. Cautious reintroduction of anticoagulation as well. She will return to her [facility] and under the care of Dr. Bryant, the hospitalist. MD DAILY Evans/MODL /[id number] Electronically Signed By: FERNANDA RICHARD MD 06/14/24 1552 PATIENT NAME: KELSIE SULLIVAN OPERATIVE REPORT DATE OF : 39 REPORT #: [id number] PHYSICIAN: FERNANDA RICHARD MD PCP: RADHA ROSAS DO REPORT IS CONFIDENTIAL AND NOT TO BE RELEASED WITHOUT AUTHORIZATION [address] [address] Signed cc: Dr. Manny Rosas Copies: ~ Electronically Signed By: FERNANDA RICHARD MD 06/14/24 1552 PATIENT NAME: KELSIE SULLIVAN OPERATIVE REPORT DATE OF : 39 REPORT #: [id number] PHYSICIAN: FERNANDA RICHARD MD PCP: RADHA ROSAS DO REPORT IS CONFIDENTIAL AND NOT TO BE RELEASED WITHOUT AUTHORIZATION
--- NOTE | 2024-06-14 16:08 | NUR ---
PT IS RESTING IN BED AWAKE, FAMILY AT BEDSIDE. DENIES ANY DISCOMFORTS. STATES SHE HAS BEEN PASSING GAS. CALL LIGHT IN REACH.
--- NOTE | 2024-06-14 16:20 | NUR ---
PT WALKING HALLWAY WITH , USING CANE. TOLERATING WELL
--- NOTE | 2024-06-14 17:05 | NUR ---
PT ASSISTED TO SIDE OF BED TO EAT DINNER, VSS. DENIES NEEDS OR DISCOMFORT.
--- NOTE | 2024-06-14 17:56 | NUR ---
PT IS DOING WELL. ATE 100% OF DINNER, TOLERATED WELL. CALL LIGHT IN REACH.
--- NOTE | 2024-06-14 19:22 | NUR ---
RECEIVED REPORT FROM DAY SHIFT RN. PATIENT IS RESTING IN BED. PATIENT DENIES ANY NEEDS. CALL LIGHT IN REACH.
--- NOTE | 2024-06-14 21:38 | NUR ---
PATIENT UP TO BR WITH BELLHOP SERVICE CAPTAIN. PATIENT ABLE TO VOID. PATIENT DID NOT HAVE A BM. PATIENT IS BACK IN BED RESTING. PATIENTS VITALS TAKEN AND RECORDED. INTAKE AND OUTPUT RECORDED. PATIENTS OM MEDS GIVEN PER ORDER. PATIENT DENIES ANY PAIN OR NAUSEA. PATIENT DENIES ANY SOB. PATIENT DENIES BEING DIZZY OR LIGHT HEADED WHEN UP TO BR. PATIENTS IV INFUSING PER ORDER. ASSESMENT COMPLETED. PATIENT PROVIDED WARM BLANKET AND FRESH WATER. PATIENT DENIES ANY FURTHER NEEDS. CALL LIGHT IN REACH.
--- NOTE | 2024-06-14 22:22 | NUR ---
PATIENT IS RESTING IN BED WITH EYES CLOSED, RR 16. NAD NOTED. IV INFUSING PER ORDER. CALL LIGHT IN REACH.
--- NOTE | 2024-06-14 22:54 | NUR ---
PATIENT CALLED TO USE THE RESTROOM. SBA. PATIENT USED WALKER. PATIENT VOIDED 400ML LIGHT YELLOW URINE. PATIENT IS BACK IN BED. CALL LIGHT WITHIN REACH.
--- NOTE | 2024-06-14 23:17 | NUR ---
PATIENT UP TO BR WITH PAGEANT DIRECTOR. PATIENT ABLE TO VOID. PATIENT HAD NO BM. PATIENT IS BACK IN BED RESTING. WARM BLANKET PROVIDED. PATIENT DENIES ANY NEEDS. CALL LIGHT IN REACH.
--- NOTE | 2024-06-15 00:21 | NUR ---
PATIENT IS RESTING IN BED WITH EYES CLOSED, CPOX READINGS ARE WNL. NAD NOTED. IV INFUSING PER ORDER. CALL LIGHT IN REACH.
--- NOTE | 2024-06-15 02:11 | NUR ---
PATIENT IS RESTING IN BED WITH EYES CLOSED, CPOX READINGS ARE WNL. NAD NOTED. IV INFUSING PER ORDER. CALL LIGHT IN REACH.
--- NOTE | 2024-06-15 02:34 | NUR ---
PATIENT UP TO BR WITH SHIP FASTENER. PATIENT ABLE TO VOID. PATIENT DID NOT HAVE BM. PATIENT IS BACK IN BED RESTING. PATIENT DENIES ANY PAIN OR NAUSEA. PATIENT PROVIDED WARM BLANKET. IV INFUSING. PATIENT DENIES ANY FURTHER NEEDS. CALL LIGHT IN REACH.
--- NOTE | 2024-06-15 04:01 | NUR ---
PATIENT IS RESTING IN BED WITH EYES CLSOED, CPOX READINGS ARE WNL. NAD NOTED. CALL LIGHT IN REACH.
--- NOTE | 2024-06-15 04:12 | NUR ---
PATIENT UP TO BR A SBA W/FWW. PATIENT ABLE TO VOID. NO BM NOTED. PATIENT IS BACK IN BED RESTING. PATIENT DENIES ANY FURTHER NEEDS. CALL LIGHT IN REACH.
[2024-06-15 05:08] VITALS: BP 111/54
[2024-06-15 05:10] VITALS: BP 111/54
--- NOTE | 2024-06-15 05:10 | NUR ---
LAB IN ROOM. PATIENTS VITALS TAKEN AND RECORDED. INTAKE AND OUTPUT RECORDED. PATIENT DENIES ANY PAIN OR NAUSEA. PATIENT DENIES ANY FURTHER NEEDS. IV INFUSING PER ORDER. CALL LIGHT IN REACH.
[2024-06-15 05:13] VITALS: BP 111/54
[2024-06-15 05:31] LABS: BASOPHILS 0.6 % (0-2); EOSINOPHILS 2.5 % (0-6); HEMATOCRIT 23.6 % (35.0-50.0); HEMOGLOBIN 8.4 g/dL (12.0-18.0); LYMPHOCYTES 20.8 % (24-44); MCH 31.1 (27-36); MCHC 35.5 g/dl (30-36); MCV 87.7 fl (81-99); MONOCYTES 8.8 % (0-12); NEUTROPHILS 67.3 % (39-80); PLATELET COUNT 157 K/uL (140-440); RBC 2.69 M/ul (4.3-5.7); RDW 14.8 (10.5-15.0)
[2024-06-15 05:46] LABS: ALBUMIN 2.5 g/dL (3.4-5.0); ALBUMIN/GLOBULIN RATIO 1.04 (1.1-2.4); ANION GAP 10.3 (7-21); BILIRUBIN, TOTAL 0.4 mg/dL (0.2-1.0); BUN/CREATININE RATIO 10.29 (6.0-28.6); CALCIUM 8.5 mg/dL (8.5-10.1); CREATININE, SERUM 0.68 mg/dL (0.55-1.02); POTASSIUM 3.3 mmol/L (3.5-5.1); PROTEIN, TOTAL 4.9 g/dL (6.4-8.2)
--- NOTE | 2024-06-15 06:26 | NUR ---
PATIENT IS RESTING IN BED WATCHING TV. PATIENT DENIES ANY NEEDS. CALL LIGHT IN REACH.
--- NOTE | 2024-06-15 07:22 | NUR ---
RECIEVED SHIFT REPORT. PT IS RESTING IN BED, EYES CLOSED, BREATHING EVEN AND UNLABORED. CALL LIGHT IN REACH.
--- NOTE | 2024-06-15 08:00 | NUR ---
PATIENT IN BED AT THIS TIME. DIE KEEPER DID HOURLY ROUNDS. CALL LIGHT WITHIN REACH, NO FURTHER NEEDS AT THIS TIME.
[2024-06-15 08:50] VITALS: BP 106/73
[2024-06-15] MEDS ORDERED: POTASSIUM CHLORIDE 10 MEQ TABCR PO ONE (09:00)
--- NOTE | 2024-06-15 09:20 | NUR ---
Spoke with Yvonne and her daughter Kalee. Pt wants to go home today. She cont. to deny any needs. Daughter and ARNAUD ask if I can get her to use her walker. I asked if she will use her walker in the home and she declined. Pt states she has a walker and a cane. They do plan on installing hand rails into the home. Family is also checking for a house keeper who will visit more often. Discussed CAPECO with daughter Kalee.
--- NOTE | 2024-06-15 09:22 | NUR ---
MORNING ASSESSMENT COMPLETE. PT HAS NO CONCERNS. EAGER TO GO HOME TODAY. FAMILY AT BEDSIDE. CALL LIGHT IN REACH.
--- NOTE | 2024-06-15 09:49 | NUR ---
PATIENT IN BED AT THIS TIME. DIRECTOR CPG CHARTED I&O'S, RN CJ CHARTED VITALS. CALL LIGHT WITHIN REACH, NO FURTHER NEEDS AT THIS TIME.
--- NOTE | 2024-06-15 10:14 | NUR ---
THIS SWIMMING POOL SERVICEPERSON REMOVED PATIENTS IV FROM RIGHT HAND PER REQUEST OF CHAZ MON[place]NA.
--- NOTE | 2024-06-16 16:11 | PATH ---
[facility] [address] [place], [place] [address] Signed SPECIMEN(S): A DUODENAL BIOPSY SPECIMEN(S): B ANTRUM BIOPSY SPECIMEN(S): C LOWER ESOPHAGEAL BIOPSY SPECIMEN(S): D DESCENDING/LEFT COLON POLYP SPECIMEN SOURCE: A. DUODENAL BIOPSY B. ANTRUM BIOPSY C. LOWER ESOPHAGEAL BIOPSY D. DESCENDING/LEFT COLON POLYP CLINICAL HISTORY: Melena. Postop: Mild chronic gastritis, hiatal hernia, diverticulosis, polyp x 1. FINAL PATHOLOGIC DIAGNOSIS: A. Duodenal biopsy: - Duodenal mucosa with no significant pathologic abnormalities. - Negative for villous blunting or increased intraepithelial lymphocytes. B. Antrum biopsy: - Antral-type gastric mucosa with mild chronic inflammation and features of reactive gastropathy. - Immunohistochemical stain for H. pylori is negative for organisms (valid control). - Negative for intestinal metaplasia. C. Lower esophageal biopsy: - Esophageal squamous mucosa with mild reflux type changes. - Negative for increase in eosinophils. - Negative for goblet cell metaplasia. D. Descending/left colon polyp: - Suggestive of hyperplastic polyp, negative for dysplasia. NA MICROSCOPIC EXAMINATION: Histologic sections of all submitted blocks are examined by light microscopy. These findings, together with the gross examination, support the pathologic diagnosis. GROSS DESCRIPTION: A. The specimen, labeled and designated "Colton Sullivan, duodenal biopsy," is received in formalin and consists of one cash soft tissue fragment, 0.6 cm. PATIENT NAME: KELSIE SULLIVAN PATHOLOGY DATE OF : 39 REPORT #: [id number] PHYSICIAN: MEGHNA MILLER PCP: RADHA ROSAS DO REPORT IS CONFIDENTIAL AND NOT TO BE RELEASED WITHOUT AUTHORIZATION [facility] [address] [place], [place] [address] Signed Entirely submitted in (A1). B. The specimen, labeled and designated "[place], W, antrum biopsy," is received in formalin and consists of two cash soft tissue fragments, ranging from 0.4-0.5 cm. Entirely submitted in (B1). C. The specimen, labeled and designated "[place], W, lower esophageal biopsy," is received in formalin and consists of three cash soft tissue fragments, ranging from 0.2-0.4 cm. Entirely submitted in (C1). D. The specimen, labeled and designated "[place], W, descending/left colon polyp," is received in formalin and consists of one cash soft tissue fragment, 0.6 cm. Entirely submitted in (D1). AB (under the direct supervision of a pathologist) The Gross Description was prepared using a voice recognition system. The report was reviewed for accuracy; however, sound-alike word errors, addition and/or deletions may occur. If there is any question about this report, please contact Client Services. ADDITIONAL NOTES: Immunohistochemical and/or in situ hybridization studies if performed in this case included appropriate positive controls that reacted as expected. This test was developed and its performance characteristics determined by [facility]. It has not been cleared or approved by the U.S. Food and Drug Administration. The FDA has determined that such clearance or approval is not necessary. This test is used for clinical purposes. It should not be regarded as investigational or for research. [facility] is certified under the Clinical Laboratory Improvement Amendments of 1988 (CLIA) as qualified to perform high complexity clinical laboratory testing. PERFORMING LABORATORY: Professional interpretation was performed by [facility], [address] [place] [id number] (CLIA#: [id number]). Diagnostician: Elpidio Turk MD Pathologist Electronically Signed 06/16/2024 Copies: PATIENT NAME: KELSIE SULLIVANENE PATHOLOGY DATE OF : 39 REPORT #: [id number] PHYSICIAN: MEGHNA PATHOLOGY PCP: RADHA ROSAS DO REPORT IS CONFIDENTIAL AND NOT TO BE RELEASED WITHOUT AUTHORIZATION [address] [place], [place] [address] Signed ~ PATIENT NAME: KELSIE SULLIVAN PATHOLOGY DATE OF : 39 REPORT #: [id number] PHYSICIAN: MEGHNA PATHOLOGY PCP: RADHA ROSAS DO REPORT IS CONFIDENTIAL AND NOT TO BE RELEASED WITHOUT AUTHORIZATION
== END 2024-06-15 10:57 | disposition home or self-care (01) | DRG 378 ==
LOC: ED 08:34 → MS 08:35
PROVIDERS: Emergency Medicine; Surgery; ADMIT Student in an Organized Health Care Education/Training Program; ATTEND Student in an Organized Health Care Education/Training Program
PROC: 0DBH8ZZ Excision of Cecum, Via Natural or Artificial Opening Endoscopic (ICD-10-PCS; principal; 2024-06-14 14:30)
PROC: 0DB58ZX Excision of Esophagus, Via Natural or Artificial Opening Endoscopic, Diagnostic (ICD-10-PCS; principal; 2024-06-14 14:30)
PROC: 0DB78ZX Excision of Stomach, Pylorus, Via Natural or Artificial Opening Endoscopic, Diagnostic (ICD-10-PCS; principal; 2024-06-14 14:30)
DX: K57.33 Diverticulitis of large intestine without perforation or abscess with bleeding (principal); D62 Acute posthemorrhagic anemia; E03.9 Hypothyroidism, unspecified; Z66 Do not resuscitate; K44.9 Diaphragmatic hernia without obstruction or gangrene; K63.5 Polyp of colon; K52.9 Noninfective gastroenteritis and colitis, unspecified; I48.91 Unspecified atrial fibrillation; I35.0 Nonrheumatic aortic (valve) stenosis; K21.9 Gastro-esophageal reflux disease without esophagitis; M81.0 Age-related osteoporosis without current pathological fracture; Z79.890 Hormone replacement therapy; Z79.01 Long term (current) use of anticoagulants; Z79.899 Other long term (current) drug therapy; Z88.8 Allergy status to other drugs, medicaments and biological substances; Z91.013 Allergy to seafood; E78.00 Pure hypercholesterolemia, unspecified; Z98.890 Other specified postprocedural states
CPT/HCPCS: 00813; 36415; 36430; 74177; 80048; 80053; 83735; 85025; 85610; 85730; 86850; 86900; 86901; 86922; 87045; 87046; 93005; 93010; 97161; 97165; 97535; A9270; J2003; J2371; J2704; J3010; J3490; J7121; P9016; Q9967

== ENCOUNTER 2024-12-20 11:54 | Emergency (ER) | payer MEDICARE ==
[~2024-12-20] VITALS: Ht 157.5 cm; Wt 82.9 kg
--- OUTSIDE RECORDS SUMMARY | ~2024-12-20 | XMS | Continuity of Care Document ---
Demographics + + + | Address | [address] | | | [place] [address] | + + + | Preferred Language | Unknown | + + + | Marital Status | | + + + | Sikh Affiliation | Unknown | + + + | Race | White | + + + | Ethnic Group | Not or | + + + Author + + + | Author | [facility] | + + + | Organization | [facility] | + + + | Address | [address] | | | [place] [address] | + + + | Phone | | + + + Care Team Providers + + + + | Care Project Portfolio Analyst Name | Role | Phone | + + + + Unavailable | Unavailable | + + + + Unavailable | Unavailable | + + + + Allergies No information. Encounters No information. Functional Status No information. Immunizations No information. Medications + + + + | date | description | facility | + + + + | (no date) | DOCUSATE SODIUM | [facility] | | | | [facility] | + + + + | (no date) | POTASSIUM CHLORIDE | [facility] | | | | [facility] | + + + + | (no date) | ACETAMINOPHEN | [facility] | | | | [facility] | + + + + | (no date) | Cholecalciferol (Vitamin | [facility] | | | D3) | [facility] | + + + + | (no date) | FAMOTIDINE | [facility] | | | | [facility] | + + + + | (no date) | CEPHALEXIN | [facility] | | | | [facility] | + + + + | (no date) | CYANOCOBALAMIN (VITAMIN | [facility] | | | B-12) | [facility] | + + + + | (no ) | HYDROCHLOROTHIAZIDE | [facility] | | | | [facility] | + + + + | (no date) | POTASSIUM CHLORIDE | [facility] | | | | [facility] | + + + + | (no date) | ALPHA LIPOIC ACID | [facility] | | | | [facility] | + + + + | (no date) | ATORVASTATIN CALCIUM | [facility] | | | | [facility] | + + + + | (no date) | DILTIAZEM HCL | [facility] | | | | [facility] | + + + + | (no date) | VIT D3 & K/BERBERINE | [facility] | | | HCL/HOPS | [facility] | + + + + | (no date) | WARFARIN SODIUM | [facility] | | | | [facility] | + + + + | (no date) | LEVOTHYROXINE SODIUM | [facility] | | | | [facility] | + + + + | (no date) | | Lilliana Spivey | | | LOSARTAN/HYDROCHLOROTHIAZID | [facility] | | | E | | + + + + Problems No information. Procedures No information. Results/Labs No information. Social History +--------+ + + | date | description | facility | +--------+ + + Vital Signs + + +---------+---------+ | date | measurement | value | units | + + +---------+---------+ | 2024-10-19 00:00 | BP_diastolic | 61 | mmHg | + + +---------+---------+ | 2024-10-19 00:00 | BP_systolic | 137 | mmHg | + + +---------+---------+ | 2024-10-19 00:00 | heart_rate | 61 | /min | + + +---------+---------+"
[~2024-12-20 11:54] MED LIST changes: +ACETAMINOPHEN500 MG PO; +LIDOCAINE1 EACH TOP; +VITAMIN B-121000 MCG PO
[2024-12-20] MEDS ORDERED: IBLOOD GLUCOSE TEST STRIP 1 EA TEST XX ONE (12:00)
[2024-12-20 12:27] LABS: BASOPHILS 0.5 % (0.1-1.2); EOSINOPHILS 1.8 % (0.7-5.8); LYMPHOCYTES 30.8 % (19.3-51.7); MCH 30.6 PG (25.6-32.2); MCHC 33.0 g/dL (32.2-35.5); MCV 92.7 fL (79.4-94.8); MONOCYTES 9.1 % (4.7-12.5); NEUTROPHILS 57.0 % (34.0-71.1); RBC 3.69 M/uL (3.93-5.22)
[2024-12-20 12:46] LABS: ALT (SGPT) 18.0 U/L (14-59); AST (SGOT) 14.0 U/L (15-37); GLOMERULAR FILTRATION RATE,EST 69.0 mL/min (>60); PROTEIN, TOTAL 6.5 g/dL (6.4-8.2); UREA NITROGEN 12.0 mg/dL (7-18)
[2024-12-20 12:47] LABS: INR 1.78 (0.80-1.30); PROTIME 20.0 Sec (11.2-14.2)
[2024-12-20 13:13] LABS: AMPHETAMINES, URINE NEGATIVE (NEGATIVE); BARBITURATES, URINE NEGATIVE (NEGATIVE); BENZODIAZEPINE, URINE NEGATIVE (NEGATIVE); CANNABINOID, URINE NEGATIVE (NEGATIVE); COCAINE, URINE NEGATIVE (NEGATIVE); ECSTASY, URINE NEGATIVE (NEGATIVE); FENTANYL, URINE NEGATIVE (NEGATIVE); METHADONE, URINE NEGATIVE (NEGATIVE); OPIATES, URINE NEGATIVE (NEGATIVE); OXYCODONE, URINE NEGATIVE (NEGATIVE); PHENCYCLIDINE, URINE NEGATIVE (NEGATIVE)
[2024-12-20 13:50] LABS: BLOOD/HGB, URINE TRACE-I (Negative); KETONE, URINE NEGATIVE (Negative); LEUK ESTERASE, URINE NEGATIVE (negative); NITRITE, URINE NEGATIVE (negative)
[2024-12-20 13:56] LABS: BACTERIA, URINE NONE SEEN /hpf (negative); CASTS, URINE NONE SEEN \\lpf; CRYSTALS, URINE NONE SEEN (0-1+); EPITHELIAL CELLS, URINE SQUAMOUS 1+ /lpf (0-1+); REFLEX CULTURE, URINE No (No)
[2024-12-20 14:55] VITALS: BP 162/71
--- NOTE | 2024-12-20 21:32 | EKG ---
[facility] [address] [facility] [place] [address] Signed Normal sinus rhythm with sinus arrhythmia Normal ECG When compared with ECG of 13-JUN-2024 10:13, Nonspecific T wave abnormality no longer evident in Anterior leads Confirmed by Lucretia Andrew MD () on 12/20/2024 9:31:51 PM Electronically Signed By: LUCRETIA ANDREW MD 12/20/242131 PATIENT NAME: KELSIE SULLIVAN Electrocardiogram DATE OF : 39 PHYSICIAN: LUCRETIA ANDREW MD REPORT #: [id number] REPORT IS CONFIDENTIAL AND NOT TO BE RELEASED WITHOUT AUTHORIZATION
== END 2024-12-20 14:55 | disposition home or self-care (01) ==
LOC: ED 11:54
PROVIDERS: Emergency Medicine
DX: G45.9 Transient cerebral ischemic attack, unspecified (principal); I48.91 Unspecified atrial fibrillation; I10 Essential (primary) hypertension; E03.9 Hypothyroidism, unspecified; E78.00 Pure hypercholesterolemia, unspecified; K21.9 Gastro-esophageal reflux disease without esophagitis; M81.0 Age-related osteoporosis without current pathological fracture; Z88.8 Allergy status to other drugs, medicaments and biological substances; Z91.013 Allergy to seafood; Z79.01 Long term (current) use of anticoagulants; Z79.890 Hormone replacement therapy; Z79.899 Other long term (current) drug therapy
CPT/HCPCS: 36415; 70450; 70496; 70498; 70551; 71045; 80053; 80307; 81001; 84484; 85025; 85610; 85730; 99284-25; Q9967